=== PATIENT | male | born 1970 | race Caucasian/White ===

== ENCOUNTER → 2023-05-08 08:05 | Outpatient (REF) | payer OTHER, SELFPAY | LOC: DHCBC/DCA 08:05 | PROVIDERS: ATTENDING PHYSICIAN Internal Medicine Cardiovascular Disease; FAMILY PHYSICIAN Family Medicine | DX: I45.10 Unspecified right bundle-branch block (principal); R94.31 Abnormal electrocardiogram [ECG] [EKG]; Q21.3 Tetralogy of Fallot | CPT/HCPCS: 78452; 93017; A9500 ==